=== PATIENT | female | born 1980 | race African-American/Black ===

== ENCOUNTER 2020-11-18 10:24 | Emergency (ER) | payer MEDICAID ==
[~2020-11-18] VITALS: Ht 157.5 cm; Wt 90.0 kg
[2020-11-18] MEDS ORDERED: ACETAMINOPHEN 325MG TABLET PO ONE (11:15)
[2020-11-18] MEDS ORDERED: TOPUD MT (11:59)
[2020-11-18 12:13] VITALS: BP 148/70
== END 2020-11-18 12:13 | disposition home or self-care (01) ==
LOC: ER 10:24
DX: G89.29 Other chronic pain (principal); M25.571 Pain in right ankle and joints of right foot; Z88.0 Allergy status to penicillin; Z88.6 Allergy status to analgesic agent; Z98.890 Other specified postprocedural states
CPT/HCPCS: 73562; 73610; 99284

== ENCOUNTER 2020-11-23 14:26 | Emergency (ER) | payer MEDICAID ==
[~2020-11-23] VITALS: Ht 157.5 cm; Wt 90.9 kg
[~2020-11-23 14:26] MED LIST: TOPUD MT
[2020-11-23 14:48] VITALS: BP 134/90
[2020-11-23] MEDS ORDERED: PSEU120T56 MT (15:31)
[2020-11-23] MEDS ORDERED: CYCL10TA7 MT (15:31)
[2020-11-24] MEDS ORDERED: ACET-2708 PO (05:38)
== END 2020-11-23 16:16 | disposition home or self-care (01) ==
LOC: ER 14:26
DX: G89.29 Other chronic pain (principal); M25.561 Pain in right knee; M25.571 Pain in right ankle and joints of right foot; J06.9 Acute upper respiratory infection, unspecified; Z88.0 Allergy status to penicillin; Z88.6 Allergy status to analgesic agent
CPT/HCPCS: 99281; 99282; 99283

== ENCOUNTER 2020-11-23 22:10 | Emergency (ER) | payer MEDICAID ==
[~2020-11-23] VITALS: Ht 165.1 cm; Wt 91.0 kg
[~2020-11-23 22:10] MED LIST changes: +CYCL10TA7 MT; +PSEU120T56 MT
[2020-11-24] MEDS ORDERED: ACETAMINOPHEN WITH CODEINE 300/30MG TABLET PO STA (01:19)
[2020-11-24 01:24] VITALS: BP 132/86
[2020-11-24] MEDS ORDERED: ACET-2708 PO (05:38)
== END 2020-11-24 02:09 | disposition home or self-care (01) ==
LOC: ER 22:10
DX: G89.29 Other chronic pain (principal); M54.5 Low back pain; M25.561 Pain in right knee; K21.9 Gastro-esophageal reflux disease without esophagitis; J45.909 Unspecified asthma, uncomplicated; Z88.6 Allergy status to analgesic agent; Z88.0 Allergy status to penicillin; Z87.828 Personal history of other (healed) physical injury and trauma
CPT/HCPCS: 99283

== ENCOUNTER 2020-11-24 02:08 | Emergency (ER) | payer MEDICAID ==
[~2020-11-24] VITALS: Ht 157.5 cm; Wt 91.0 kg
[2020-11-24 02:49] VITALS: BP 149/96
[2020-11-24] MEDS ORDERED: ACET-2708 PO (05:38)
== END 2020-11-24 05:59 | disposition home or self-care (01) ==
LOC: ER 02:08
DX: G89.29 Other chronic pain (principal); M25.561 Pain in right knee; M54.5 Low back pain; M25.572 Pain in left ankle and joints of left foot; M54.2 Cervicalgia; K21.9 Gastro-esophageal reflux disease without esophagitis; J45.909 Unspecified asthma, uncomplicated; Z87.828 Personal history of other (healed) physical injury and trauma; Z88.6 Allergy status to analgesic agent; Z88.0 Allergy status to penicillin
CPT/HCPCS: 99282